=== PATIENT | female | born 2000 | race Caucasian/White ===

== ENCOUNTER 2022-04-01 20:39 | Emergency (ER) | payer BC ==
[2022-04-01] MEDS ORDERED: Ondansetron 4 MG Tab.DIS PO ONE (22:29)
[2022-04-01] MEDS ORDERED: Ibuprofen 600 MG Tab PO ONE (22:29)
[2022-04-01 23:36] VITALS: BP 117/74; PULSE 82
== END 2022-04-01 23:35 | disposition home or self-care (01) ==
LOC: MW.ED 20:39
DX: S06.0X0A Concussion without loss of consciousness, initial encounter (principal); W22.8XXA Striking against or struck by other objects, initial encounter
CPT/HCPCS: 70450; 99283; A9270